=== PATIENT | female | born 1960 | race Caucasian/White ===

== ENCOUNTER 2016-12-26 06:17 | Day surgery (SDC) | payer OTHER ==
[2016-12-20 16:13] VITALS: BMI 33.4
--- NOTE | 2016-12-26 06:35 | HP ---
History & Physical Update - History History: No Change - Physical Physical: No Change - Assessment Assessment: No Change - Plan Plan: No Change (PRIOR to surgery, pt c/o low back pain radiating down both legs causing intermittent numbness. This is my first time meeteing the patient and I have informed her that I will be assisting Dr. Valverde today.)
[2016-12-26] MEDS ORDERED: CEFAZOLIN 2 GM/D5W 50 ML IVPB ONE (06:49)
[2016-12-26] MEDS ORDERED: oxyCODONE HCL 10 MG SUSTAINED ACTING TABLET PO STA (06:49)
[2016-12-26] MEDS ORDERED: THROMBIN (BOVINE) 5,000 UNIT VIAL TP ONE ×2 (06:50→08:46)
[2016-12-26] MEDS ORDERED: BUPIVACAINE HCL/PF 2.5 MG/ML - 30 ML VIAL IJ ONE (06:50)
[2016-12-26] MEDS ORDERED: methylPREDNISolone ACET (DEPO) 40 MG/1 ML VIAL ONE (06:50)
[2016-12-26] MEDS ORDERED: GUM MASTIC/STORAX/MSAL/ALCOHOL 1 DRP DROPSBTL MC ONE (06:51)
[2016-12-26] MEDS ORDERED: LIDOCAINE 1%-EPI 1:100,000 30 ML MDV IJ ONE (06:51)
[2016-12-26] MEDS ORDERED: LIDOCAINE HCL/PF 2% SDV 5ML VIAL ONE (06:52)
[2016-12-26] MEDS ORDERED: ePHEDrine SULFATE 50 MG/1 ML AMPULE ONE ×2 (06:52→07:04)
[2016-12-26] MEDS ORDERED: PROPOFOL 20 ML ONE (06:52)
[2016-12-26] MEDS ORDERED: SUCCINYLCHOLINE CHLORIDE 200 MG/10 ML VIAL ONE (06:52)
[2016-12-26] MEDS ORDERED: ONDANSETRON 4 MG/2 ML VIAL ONE ×2 (06:52→09:48)
[2016-12-26] MEDS ORDERED: PHENYLEPHRINE HCL 10 MG/1 ML SINGLE DOSE VIAL ONE (06:52)
[2016-12-26] MEDS ORDERED: DEXAMETHASONE SOD PHOSPHATE 4 MG/1 ML VIAL ONE (06:52)
[2016-12-26] MEDS ORDERED: ROCURONIUM BROMIDE 50 MG/5 ML VIAL ONE (06:53)
[2016-12-26] MEDS ORDERED: MIDAZOLAM HCL 2 MG/2 ML SINGLE DOSE VIAL ONE ×4 (06:53→08:18)
[2016-12-26] MEDS ORDERED: BUPIVACAINE HCL/PF 0.5% (5MG/ML) 10 ML VIAL ONE (07:06)
[2016-12-26] MEDS ORDERED: oxyCODONE HCL 10 MG SUSTAINED ACTING TABLET ONE (07:10)
[2016-12-26] MEDS ORDERED: BUPIVACAINE HCL/PF 0.25% (2.5MG/ML) 10 ML VIAL IJ ONE (08:46)
[2016-12-26] MEDS ORDERED: LIDOCAINE 1%/EPI 1:100000 (50 ML MULTI DOSE VIAL) INF ONE (08:47)
[2016-12-26] MEDS ORDERED: methylPREDNISolone ACET (DEPO) 40 MG/1 ML VIAL IM ONE (08:47)
[2016-12-26] MEDS ORDERED: ACETAMINOPHEN INJECTION 100 ML IVPB ONE (09:18)
--- NOTE | 2016-12-26 09:19 | OP ---
Operative Note - Note: Operative Date: 12/26/16 Pre-Operative Diagnosis: Lumbar stenosis with radiculopathy Operation: Lumbar laminectomy L3-L5 (bilateral) Post-Operative Diagnosis: Same as Pre-op Surgeon: Tunde Valverde Salesperson Furs: Rickie Hobson Anesthesiologist/SOCIAL MEDIA CONTENT SPECIALIST: Natalio Ayoub Anesthesia: Spinal Estimated Blood Loss (mls): 20 Fluid Volume Replaced (mls): 1,000 Operative Report Dictated: Yes
--- NOTE | 2016-12-26 09:20 | SURG ---
Surgery Estimator And Drafter Note Estimator And Drafter: Rickie Hobson PA-C Date of Service: 12/26/16 Diagnosis: Lumbar stenosis with radiculopathy Procedure: CPT 37234 Lumbar laminectomy L3-L5 (bilateral) I was present for the entirety of the operative procedure. For further detail, please refer to operative report. Visit type - Case Type Case Type: Scheduled Admission - New patient This patient is new to me today: Yes Date on this admission: 12/26/16
[2016-12-26] MEDS ORDERED: ACETAMINOPHEN 1000 MG/100 ML VIAL (NON FORMULARY) IVPB ONE (09:21)
[2016-12-26] MEDS ORDERED: ONDANSETRON 4 MG/2 ML VIAL IVPUSH PRN (09:23)
[2016-12-26] MEDS ORDERED: oxyCODONE HCL 5 MG TABLET PO PRN ×2 (09:23)
[2016-12-26] MEDS ORDERED: LACTATED RINGERS SOLUTION 1,000 ML IV SCH (09:30)
[2016-12-26] MEDS ORDERED: oxyCODONE HCL 5 MG TABLET ONE ×2 (10:50→11:30)
[2016-12-26 11:06] VITALS: TEMP 97.9
[2016-12-26 12:33] VITALS: BP 128/61; PULSE 88
--- NOTE | 2016-12-26 21:30 | OP ---
DATE OF OPERATION: 12/26/2016 PREOPERATIVE DIAGNOSIS: Spinal stenosis L3-4, L4-5. POSTOPERATIVE DIAGNOSIS: Spinal stenosis L3-4, L4-5. PROCEDURE PERFORMED: Laminectomy L3 to L5. SURGEON: Tunde Valverde MD MANAGER INFUSION: PREMA [place] ESTIMATED BLOOD LOSS: 50 cc. ANESTHESIA: Spinal. COMPLICATIONS: There were none. DISPOSITION: Patient brought to the PACU in stable condition. INDICATION FOR SURGERY: The patient is a 56-year-old female who has been suffering from pain from her back down to her leg. X-rays and MRI were completed which noted that she has spinal stenosis at L3-4 and L4-5. She had gone through an exhaustive course of treatment for such which included medications, physical therapy, as well as injections. Unfortunately, her pain continued to persist despite all this. At this point, risks, benefits, and alternatives were discussed and the patient consented to surgery. OPERATIVE NOTE: Patient was brought to the operating room by the anesthesia staff. After appropriate patient identification was performed, spinal anesthesia was given. She was placed prone onto the Isidro frame with all areas of bony prominences well padded. At this time, 2 needles were placed into her back to li off the L3 to L5 segment. An x-ray was taken to confirm this was correct. Needle was removed, and 10 mL of lidocaine with epinephrine was injected in the back. Her back was prepped and draped in a sterile manner. At this point, a timeout was completed. An incision was made from the top of L3 down to the bottom of S1. Dissection was carried down to fascia. Fascia was split at this time. A spinal needle was placed down to the L3 lamina. An x-ray was taken to confirm this was correct. At this point, the needle was removed, and the microscope was brought in. The interspinous ligament at L3-4 and L4-5 was removed. The spinous process of L4 was removed. The lamina of L4 was removed. The flavum was removed. By the end of the procedure, the L4 and the L5 nerve roots appeared to be well decompressed. All bleeding was well controlled at this time. Steroids were placed over the nerve root. FloSeal was placed over that. The fascia was closed with a number 1 Vicryl suture. The subcutaneous tissue was closed with 2-0 Vicryl suture. The skin was closed with 3-0 Monocryl. Steri-Strips were applied. Dermabond was applied. Patient was placed supine on her bed and brought to the PACU in stable condition. TUNDE VALVERDE M.D. /[id number] MTDD
== END 2016-12-26 12:15 | disposition home or self-care (01) ==
LOC: FASU 06:17
PROVIDERS: ATTEND Orthopaedic Surgery Orthopaedic Surgery of the Spine
PROC: 01NB0ZZ Release Lumbar Nerve, Open Approach (ICD-10-PCS; principal; 2016-12-26 08:03)
DX: M48.06 Spinal stenosis, lumbar region (principal); M48.07 Spinal stenosis, lumbosacral region
CPT/HCPCS: 72100-TC; 94760